=== PATIENT | male | born 1990 | race African-American/Black ===

== ENCOUNTER 2020-12-12 10:46 | Emergency (ER) | payer OTHER ==
[2020-12-12 10:56] VITALS: BP 115/68; PULSE 76; TEMP 97.8; BMI 24.4
[2020-12-12] MEDS ORDERED: KETOROLAC TROMETHAMINE 60 MG/2 ML VIAL IM ONE (11:24)
[2020-12-12] MEDS ORDERED: KETOROLAC TROMETHAMINE 30 MG/1 ML VIAL ONE (11:26)
== END 2020-12-12 11:51 | disposition home or self-care (01) ==
LOC: JERFT 10:46
PROC: 3E0233Z Introduction of Anti-inflammatory into Muscle, Percutaneous Approach (ICD-10-PCS; principal; 2020-12-12)
DX: S93.402A Sprain of unspecified ligament of left ankle, initial encounter (principal)
CPT/HCPCS: 73610-TC-LT-FY; 73630-TC-LT; 99284-25

== ENCOUNTER 2021-02-15 19:27 | Emergency (ER) | payer OTHER ==
[2021-02-15 19:38] VITALS: BP 116/70; PULSE 73; TEMP 98.4; BMI 25.0
[2021-02-15] MEDS ORDERED: KETOROLAC TROMETHAMINE 30 MG/1 ML VIAL IM ONE (19:49)
[2021-02-15] MEDS ORDERED: KETOROLAC TROMETHAMINE 30 MG/1 ML VIAL ONE (20:18)
== END 2021-02-15 21:30 | disposition home or self-care (01) ==
LOC: JERFT 19:27
PROC: 3E0233Z Introduction of Anti-inflammatory into Muscle, Percutaneous Approach (ICD-10-PCS; principal; 2021-02-15)
DX: M25.521 Pain in right elbow (principal); M54.5 Low back pain
CPT/HCPCS: 72100-TC-FY; 73070-TC-RT-FY; 99284-25

== ENCOUNTER 2021-04-18 23:50 | Emergency (ER) | payer OTHER, BC ==
[2021-04-19 00:54] VITALS: BP 107/66; PULSE 63; TEMP 98; BMI 25.7
[2021-04-19] MEDS ORDERED: ACETAMINOPHEN 500 MG TABLET (FP) PO ONE (02:29)
[2021-04-19] MEDS ORDERED: LIDOCAINE 5% TOPICAL PATCH TP ONE (02:30)
[2021-04-19] MEDS ORDERED: ACETAMINOPHEN 325 MG TABLET (FP) ONE (02:36)
[2021-04-19] MEDS ORDERED: LIDOCAINE 5% TOPICAL PATCH ONE (02:36)
[2021-04-19] MEDS ORDERED: LIDOCAINE PATCH REMOVAL MC SCH (22:00)
== END 2021-04-19 03:43 | disposition left against medical advice (07) ==
LOC: JER 23:50
DX: S29.012A Strain of muscle and tendon of back wall of thorax, initial encounter (principal); V89.9XXA Person injured in unspecified vehicle accident, initial encounter; Y92.9 Unspecified place or not applicable
CPT/HCPCS: 70450-TC; 72125-TC; 72128-TC; 72131-TC; 99285-25

== ENCOUNTER 2022-03-09 23:09 | Emergency (ER) | payer OTHER ==
[2022-03-09 23:28] VITALS: BP 131/71; PULSE 122; BMI 22.8
[2022-03-09 23:41] LABS: HEMOGLOBIN 14.5 GM/dL (11.7-16.9); MCH 30.3 pg (25.7-33.7); MCHC 30.2 g/dl (32.0-35.9); MEAN CELL VOLUME 100.2 fl (80-96); MEAN PLT VOLUME 9.9 fl (7.5-11.1); PLATELET COUNT 188 10^3/uL (134-434); RBC 4.78 M/mm3 (4.00-5.60); RDW 15.2 % (11.9-15.9); WHITE BLOOD COUNT 6.2 K/mm3 (4.0-10.0)
[2022-03-09 23:45] LABS: INR 1.25 (0.83-1.09); PROTHROMBIN TIME (PATIENT) 14.4 SEC (9.7-13.0)
[2022-03-09 23:48] LABS: ACTIVATED PTT 44.8 SECONDS (25.2-36.5)
[2022-03-09 23:59] LABS: ARTERIAL BLD GAS O2 SATURATION 91.3 % (95-98); ARTERIAL BLOOD GAS BASE EXCESS -31.6 mmol/L (-2-2); ARTERIAL BLOOD GAS PO2 145.1 mmHg (80-100); ARTERIAL BLOOD GAS pH < 6.717 (7.350-7.450)
[2022-03-10 00:08] LABS: ALBUMIN 3.3 g/dl (3.4-5.0); BLOOD UREA NITROGEN 11.2 mg/dL (7-18); CALCIUM 9.2 mg/dL (8.5-10.1); MAGNESIUM 2.7 mg/dL (1.8-2.4)
[2022-03-10 00:12] LABS: CREATININE 1.7 mg/dL (0.55-1.3)
[2022-03-10 00:13] LABS: BILIRUBIN,TOTAL 0.4 mg/dL (0.2-1)
[2022-03-10 00:57] LABS: ANISOCYTOSIS 2+; MACROCYTOSIS 0; OVALOCYTE 2+
[2022-03-10] MEDS ORDERED: MIDAZOLAM IN 0.9 % SOD.CHLORID 100 MG/100 ML PLAST..BAG IVPB SCH (01:15)
[2022-03-10] MEDS ORDERED: FENTANYL IVPB 500 MCG/100 ML BAG IVPB SCH (01:15)
[2022-03-10] MEDS ORDERED: ROCURONIUM BROMIDE 50 MG/5 ML VIAL IV ONE (01:21)
[2022-03-10 01:23] VITALS: TEMP 97
[2022-03-10 01:36] LABS: EPI CELLS >36 /uL (0-25.1); HYALINE CASTS 1 /uL (0-3.1); PH,URINE 6.5 (5.0-8.0); URINE APPEARANCE CLEAR; URINE BACTERIA 72 /uL (0-1359); URINE BILIRUBIN NEGATIVE (NEGATIVE); URINE COLOR YELLOW; URINE GLUCOSE (UA) 2+ (NEGATIVE); URINE KETONE NEGATIVE (NEGATIVE); URINE LEUK ESTERASE NEGATIVE (NEGATIVE); URINE NITRITE NEGATIVE (NEGATIVE); URINE PROTEIN 3+ (NEGATIVE); URINE RBC 81 /uL (0-23.9); URINE UROBILINOGEN 0.2 mg/dL (0.2-1.0); URINE WBC 37 /uL (0-25.8)
== END 2022-03-10 01:50 | disposition short-term general hospital (02) ==
LOC: JER 23:09
DX: I46.9 Cardiac arrest, cause unspecified (principal)
CPT/HCPCS: 36415; 36600; 70450-TC; 71045-TC-FY; 71260-TC; 72125-TC; 72128-TC; 72131-TC; 72170-TC-FY; 74177-TC; 80053; 81003; 82550; 82553; 82803; 83605; 83735; 84484; 85025; 85610; 85730; 86850; 86900; 86901; 87086; 93005; 93010; 99285-25; C9803-CS; Q9967; U0003; U0005